=== PATIENT | female | born 1995 | race Hispanic/Latino ===

== ENCOUNTER 2017-10-17 12:43 | Inpatient (IN) | payer MEDICAID ==
[~2017-10-17] VITALS: Ht 157.5 cm; Wt 91.6 kg
[2017-10-17] MEDS ORDERED: OXYTOCIN-LR 20 UNITS/1000 ML 1,000 ML IV SCH (13:30)
[2017-10-17] MEDS ORDERED: DINOPROSTONE 10 MG VAGINAL SUPP ONE (13:45)
[2017-10-17 13:57] LABS: HEMATOCRIT 35.3 % (36-48); MEAN CORPUSCULAR HEMOGLOBIN 30.2 pg (27.0-33.0); MEAN CORPUSCULAR HGB CONC 35.2 g/dL (32.0-36.0); MEAN CORPUSCULAR VOLUME 85.9 fL (79-99); PLATELET COUNT (AUTO) 317 K/uL (130-400); RED BLOOD CELL COUNT(AUTO) 4.11 MIL/uL (4.00-5.50); RED CELL DISTRIBUTION WIDTH 12.9 % (11.0-15.5); WHITE BLOOD COUNT (AUTO) 9.2 K/uL (4.8-10.8)
[2017-10-17 14:10] LABS: APPEARANCE,URINE Clear (CLEAR); BILIRUBIN,URINE Negative (NEGATIVE); COLOR,URINE Yellow (YELLOW); GLUCOSE, URINE (UA) Negative (NEGATIVE); KETONES,URINE Negative (NEGATIVE); LEUKOCYTE ESTERASE ,URINE Small (NEGATIVE); NITRATE,URINE Negative (NEGATIVE); OCCULT BLOOD,URINE Negative (NEGATIVE); PH,URINE 7.5 (5.0-8.0); PROTEIN,URINE Negative (NEGATIVE); UROBILINOGEN,URINE 0.2 mg/dL (0.2-1.0)
[2017-10-17 14:38] LABS: BACTERIA,URINE Few /HPF (None Seen); RBC,URINE None Seen /HPF (0-1)
[2017-10-17] MEDS ORDERED: DINOPROSTONE 10 MG VAGINAL SUPP VG ONE (15:00)
[2017-10-17] MEDS ORDERED: OXYTOCIN 10 USP UNITS/ML 20 UNIT in LACTATED RINGERS 1000ML 1,000 ML IV SCH (16:30)
[2017-10-17] MEDS: LACTATED RINGERS 1000ML 1,000 ML IV PRN (20:49)
[2017-10-18] MEDS ORDERED: LACTATED RINGERS 1000ML 1,000 ML IV ONE (02:44)
[2017-10-18] MEDS ORDERED: OXYTOCIN 10 USP UNITS/ML ONE (02:45)
[2017-10-18] MEDS: LACTATED RINGERS 1000ML 1,000 ML IV PRN (05:26)
[2017-10-18 08:25] LABS: HEPATITIS Bs ANTIGEN SCREEN P Negative (Negative)
[2017-10-18] MEDS: MEPERIDINE-PF 50 MG/ML SYG IVP SCH (13:07)
[2017-10-18] MEDS: PROMETHAZINE HCL 25 MG/ML 1ML AMPULE IM SCH (13:07)
[2017-10-18] MEDS ORDERED: LIDOCAINE HCL 1% 20 ML VIAL ONE (14:11)
[2017-10-18] MEDS: AMPICILLIN 2GM+NS 100ML 100 ML IV SCH ×2 (16:59→23:00)
[2017-10-18 17:55] VITALS: BP 115/71
[2017-10-18] MEDS ORDERED: PROMETHAZINE HCL 25 MG/ML 1ML AMPULE IM PRN (18:00)
[2017-10-18] MEDS ORDERED: MEPERIDINE-PF 50 MG/ML SYG IVP PRN (18:00)
[2017-10-19] MEDS: LACTATED RINGERS 1000ML 1,000 ML IV PRN (01:51)
[2017-10-19] MEDS ORDERED: OXYTOCIN 10 USP UNITS/ML ONE ×3 (03:04→15:31)
[2017-10-19] MEDS: AMPICILLIN 2GM+NS 100ML 100 ML IV SCH (04:49)
[2017-10-19] MEDS ORDERED: NALOXONE HCL 0.4 MG/1 ML ML IV PRN (07:15)
[2017-10-19] MEDS ORDERED: LACTATED RINGERS 500 ML 500 ML IV PRN (07:15)
[2017-10-19] MEDS ORDERED: EPHEDRINE SULFATE 50 MG/ML AMPULE IVP PRN (07:15)
[2017-10-19] MEDS ORDERED: CEFAZOLIN SODIUM 1 GM VIAL ONE (10:24)
[2017-10-19] MEDS: MEPERIDINE-PF 50 MG/ML SYG IVP SCH (13:00)
[2017-10-19] MEDS: PROMETHAZINE HCL 25 MG/ML 1ML AMPULE IM SCH (13:00)
[2017-10-19] MEDS ORDERED: LIDOCAINE HCL 1% 20 ML VIAL ONE (13:02)
[2017-10-19] MEDS ORDERED: BENZOCAINE/LANOLIN/ALOE VERA 60 ML AEROSOL TP PRN (14:45)
[2017-10-19] MEDS ORDERED: LANOLIN 30GM OINTMENT TP PRN (14:45)
[2017-10-19] MEDS ORDERED: DIPH,PERTUSS(ACELL),TET VAC/PF 0.5 ML VIAL IM PRN (14:45)
[2017-10-19] MEDS ORDERED: MEASLES/MUMPS/RUBELLA VACCINE, LIVE 0.5 ML/VIAL SQ PRN (14:45)
[2017-10-19] MEDS ORDERED: WITCH HAZEL 1 PAD TP PRN (14:45)
[2017-10-19] MEDS ORDERED: ACETAMINOPHEN 325 MG TAB PO PRN (14:45)
[2017-10-19] MEDS: IBUPROFEN 600 MG TABLET PO PRN (15:53)
[2017-10-19 16:05] VITALS: BP 117/71
[2017-10-19] MEDS ORDERED: PNV1TABL17 PO (16:44)
[2017-10-19 19:31] VITALS: BP 107/55
[2017-10-19] MEDS: DOCUSATE SODIUM 100 MG CAP PO SCH (20:41)
[2017-10-19 23:17] VITALS: BP 100/50
[2017-10-20] MEDS: IBUPROFEN 600 MG TABLET PO PRN ×3 (01:29→18:10)
[2017-10-20 03:16] VITALS: BP 93/50
[2017-10-20 05:53] LABS: HEMATOCRIT 26.7 % (36-48); MEAN CORPUSCULAR HEMOGLOBIN 29.6 pg (27.0-33.0); MEAN CORPUSCULAR HGB CONC 34.2 g/dL (32.0-36.0); MEAN CORPUSCULAR VOLUME 86.6 fL (79-99); PLATELET COUNT (AUTO) 267 K/uL (130-400); RED BLOOD CELL COUNT(AUTO) 3.08 MIL/uL (4.00-5.50); RED CELL DISTRIBUTION WIDTH 12.8 % (11.0-15.5)
[2017-10-20 07:35] VITALS: BP 112/53
[2017-10-20] MEDS: DOCUSATE SODIUM 100 MG CAP PO SCH ×2 (09:13→21:33)
[2017-10-20] MEDS ORDERED: LEVO137T2 PO (09:28)
[2017-10-20 11:19] VITALS: BP 103/52
[2017-10-20 15:22] VITALS: BP 133/68
[2017-10-20 19:15] VITALS: BP 114/63
[2017-10-20 23:15] VITALS: BP 127/80
[2017-10-21 04:23] VITALS: BP 128/77
[2017-10-21 07:20] VITALS: BP 119/62
[2017-10-21] MEDS: DOCUSATE SODIUM 100 MG CAP PO SCH (08:10)
[2017-10-21] MEDS: IBUPROFEN 600 MG TABLET PO PRN (08:11)
[2017-10-21] MEDS ORDERED: IBUP-2070 PO (09:15)
[2017-10-21] MEDS ORDERED: FERS325 PO (09:15)
[2017-10-21 11:06] VITALS: BP 110/68
== END 2017-10-21 13:30 | disposition home or self-care (01) | DRG 560 ==
LOC: LDH 12:43 → WSH 10-19 16:05
PROVIDERS: ADMIT Obstetrics & Gynecology; ATTEND Obstetrics & Gynecology
PROC: 10E0XZZ Delivery of Products of Conception, External Approach (ICD-10-PCS; principal; 2017-10-18)
PROC: 0W8NXZZ Division of Female Perineum, External Approach (ICD-10-PCS; 2017-10-18)
PROC: 3E0234Z Introduction of Serum, Toxoid and Vaccine into Muscle, Percutaneous Approach (ICD-10-PCS; 2017-10-18)
PROC: 3E0134Z Introduction of Serum, Toxoid and Vaccine into Subcutaneous Tissue, Percutaneous Approach (ICD-10-PCS; 2017-10-18)
PROC: 3E0R3BZ Introduction of Anesthetic Agent into Spinal Canal, Percutaneous Approach (ICD-10-PCS; 2017-10-18)
PROC: 00HU33Z Insertion of Infusion Device into Spinal Canal, Percutaneous Approach (ICD-10-PCS; 2017-10-18)
PROC: 10907ZC Drainage of Amniotic Fluid, Therapeutic from Products of Conception, Via Natural or Artificial Opening (ICD-10-PCS; 2017-10-18)
DX: O69.1XX0 Labor and delivery complicated by cord around neck, with compression, not applicable or unspecified (principal); Z23 Encounter for immunization; Z37.0 Single live birth; Z3A.39 39 weeks gestation of pregnancy
CPT/HCPCS: 36415; 76805; 81001; 82948; 85027; 86592; 86850; 86900; 86901; 87340; 90707; 90715; A4314; J0290; J0690; J2175; J2550; J2590; J7120

== ENCOUNTER 2022-09-09 10:27 | Emergency (ER) | payer MEDICAID ==
[~2022-09-09] VITALS: Ht 162.6 cm; Wt 88.0 kg
[~2022-09-09 10:27] MED LIST: CIPR-278 PO; FERS325 PO; IBUP-2070 PO; LEVO137T2 PO; ONDA4TAB10 PO; PNV1TABL17 PO
[2022-09-09 10:55] LABS: BASOPHILS % (AUTO) 0.3 % (0.0-5.0); EOSINOPHILS % (AUTO) 2.5 % (0.0-8.0); HEMATOCRIT 48.9 % (36-48); LYMPHOCYTES % (AUTO) 15.3 % (21.0-51.0); MEAN CORPUSCULAR HEMOGLOBIN 30.3 pg (27.0-33.0); MEAN CORPUSCULAR HGB CONC 34.6 g/dL (32.0-36.0); MEAN CORPUSCULAR VOLUME 87.6 fL (79-99); MONOCYTES % (AUTO) 7.3 % (3.0-13.0); NEUTROPHILS % (AUTO) 74.1 % (40.0-77.0); PLATELET COUNT (AUTO) 348 K/uL (130-400); RED BLOOD CELL COUNT(AUTO) 5.58 MIL/uL (4.00-5.50); RED CELL DISTRIBUTION WIDTH 12.8 % (11.0-15.5)
[2022-09-09 10:57] LABS: APPEARANCE,URINE CLOUDY (CLEAR); BILIRUBIN,URINE NEGATIVE (NEGATIVE); COLOR,URINE YELLOW (YELLOW); GLUCOSE, URINE (UA) NEGATIVE (NEGATIVE); KETONES,URINE NEGATIVE (NEGATIVE); LEUKOCYTE ESTERASE ,URINE 500 Leu/uL (NEGATIVE); NITRATE,URINE NEGATIVE (NEGATIVE); OCCULT BLOOD,URINE LARGE (NEGATIVE); PROTEIN,URINE 100 mg/dL (NEGATIVE); UROBILINOGEN,URINE 0.2 mg/dL (0.2-1.0)
[2022-09-09 10:59] LABS: HCG,QUALITATIVE URINE NEGATIVE (NEGATIVE)
[2022-09-09 11:06] LABS: ALBUMIN 4.6 g/dL (3.5-5.0); TOTAL PROTEIN, SERUM 8.3 g/dL (6.0-8.3)
[2022-09-09 11:09] LABS: MUCUS,URINE MANY LPF (None Seen); SQUAMOUS EPITHELIAL CELL,UR MOD /HPF (0-2); WBC,URINE 26-50 /HPF (0-1)
[2022-09-09] MEDS ORDERED: CEFTRIAXONE 1G VIAL IVP ONE (18:00)
[2022-09-09] MEDS ORDERED: IOHEXOL 350 MG/ML 100ML INFUS..BTL IV ONE (18:13)
[2022-09-09] MEDS ORDERED: DICY20TA2 PO (19:37)
[2022-09-09] MEDS ORDERED: CIPR-278 PO (19:37)
[2022-09-09] MEDS ORDERED: SULF1TAB42 PO (19:37)
[2022-09-09] MEDS ORDERED: ONDA4TAB10 PO (19:37)
[2022-09-09] MEDS ORDERED: DICYCLOMINE HCL 20 MG TAB PO SCH (20:00)
[2022-09-09] MEDS ORDERED: SULFAMETHOX-TMP DS 800/160 TAB PO SCH (20:00)
[2022-09-09 20:28] VITALS: BP 117/54
== END 2022-09-09 20:30 | disposition home or self-care (01) ==
LOC: EDH 10:27
DX: N39.0 Urinary tract infection, site not specified (principal); K52.9 Noninfective gastroenteritis and colitis, unspecified; K82.9 Disease of gallbladder, unspecified; R63.0 Anorexia; Z20.822 Contact with and (suspected) exposure to COVID-19; J45.909 Unspecified asthma, uncomplicated; E11.9 Type 2 diabetes mellitus without complications; E03.9 Hypothyroidism, unspecified; Z79.899 Other long term (current) drug therapy; Z98.890 Other specified postprocedural states
CPT/HCPCS: 99285; 74177; 96374; 87635; 80053; 83690; 85025; 87088; 87804 ×2; 81001; 81025; 36415; C9803; J0696; Q9967